=== PATIENT | male | born 1980 | race Caucasian/White ===

== ENCOUNTER 2016-08-15 07:32 | Emergency (ER) | payer SELFPAY ==
[~2016-08-15] VITALS: Ht 172.7 cm; Wt 63.5 kg
[2016-08-15 07:32] VITALS: BP 150/94
[~2016-08-15 07:32] MED LIST: NAPR500T3 PO; ORPH100T PO
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
[2016-08-15 08:59] LABS: BASO # 0.1 x10^3/uL (0.0-0.2); BASO % 1 % (0-3); EOS % 2 % (0-3); HEMATOCRIT 39.9 % (39.0-53.0); HEMOGLOBIN 13.7 g/dL (13.0-17.5); LYMPH # 1.4 x10^3/uL (1.0-4.8); LYMPH % 18 % (24-48); MEAN CORPUSCULAR HEMOGLOBIN 29 pg (25-35); MEAN CORPUSCULAR HGB CONC 34 g/dL (31-37); MEAN CORPUSCULAR VOLUME 85 fL (79-100); MONO % 8 % (0-9); NEUT % 71 % (31-73); PLATELET COUNT 262 x10^3/uL (140-400); RED BLOOD COUNT 4.68 x10^6/uL (4.30-5.70); RED CELL DISTRIBUTION WIDTH 16.1 % (11.5-14.5); WHITE BLOOD COUNT 7.8 x10^3/uL (4.0-11.0)
[2016-08-15 09:01] LABS: BILIRUBIN,URINE NEGATIVE (NEG); GLUCOSE,URINE NEGATIVE (NEG); NITRITE,URINE NEGATIVE (NEG); PH,URINE 7.5; PROTEIN,URINE NEGATIVE (NEG-TRACE); UROBILINOGEN,URINE 0.2 mg/dL (0.2 mg/dL)
[2016-08-15 09:04] LABS: BARBITURATES NEG (NEG); BENZODIAZEPINES NEG (NEG); CANNABINOIDS NEG (NEG); COCAINE POS (NEG); METHADONE NEG (NEG); OPIATES NEG (NEG); PHENCYCLIDINE NEG (NEG)
[2016-08-15 09:12] LABS: BACTERIA,URINE FEW /HPF (0-FEW); RBC,URINE OCC /HPF (0-2); SQUAMOUS EPITHELIAL CELL,UR FEW /LPF
[2016-08-15 09:23] LABS: CALCIUM 9.2 mg/dL (8.5-10.1); CREATININE 0.9 mg/dL (0.7-1.3); GFR 95.5; POTASSIUM 4.1 mmol/L (3.5-5.1)
[2016-08-15 09:30] LABS: ALBUMIN 3.6 g/dL (3.4-5.0); TOTAL BILIRUBIN 0.5 mg/dL (0.2-1.0); TOTAL PROTEIN 7.1 g/dL (6.4-8.2)
[2016-08-15 09:31] LABS: ETHANOL < 10 mg/dL (0-10)
== END 2016-08-15 09:34 | disposition short-term general hospital (02) ==
LOC: ER 07:32
DX: R45.851 Suicidal ideations (principal); F43.10 Post-traumatic stress disorder, unspecified; F31.9 Bipolar disorder, unspecified; F25.9 Schizoaffective disorder, unspecified; F12.10 Cannabis abuse, uncomplicated; F15.10 Other stimulant abuse, uncomplicated
CPT/HCPCS: 36415; 80053; 80305; 80320; 81001; 83690; 85027; 99285; G6038; G0480; G0481; 80196

== ENCOUNTER 2019-10-23 19:23 | Emergency (ER) | payer MEDICAID ==
[~2019-10-23] VITALS: Ht 172.7 cm; Wt 64.0 kg
[~2019-10-23 19:23] MED LIST changes: +NAPR-514 PO; -NAPR500T3 PO
[2019-10-23 19:25] VITALS: BP 153/86
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
[2019-10-23] MEDS ORDERED: CEPH-264 PO (20:18)
[2019-10-23] MEDS ORDERED: BACI3.5O8 OS (20:19)
== END 2019-10-23 20:30 | disposition home or self-care (01) ==
LOC: ER 19:23
DX: S00.561A Insect bite (nonvenomous) of lip, initial encounter (principal); S90.561A Insect bite (nonvenomous), right ankle, initial encounter; S70.361A Insect bite (nonvenomous), right thigh, initial encounter; F31.9 Bipolar disorder, unspecified; F17.200 Nicotine dependence, unspecified, uncomplicated; F12.90 Cannabis use, unspecified, uncomplicated; F19.90 Other psychoactive substance use, unspecified, uncomplicated; Z98.890 Other specified postprocedural states; W57.XXXA Bitten or stung by nonvenomous insect and other nonvenomous arthropods, initial encounter; Y93.89 Activity, other specified; Y92.89 Other specified places as the place of occurrence of the external cause; Y99.8 Other external cause status
CPT/HCPCS: 99283

== ENCOUNTER 2019-11-10 11:22 | Emergency (ER) | payer MEDICAID ==
[~2019-11-10] VITALS: Ht 172.7 cm; Wt 59.0 kg
[~2019-11-10 11:22] MED LIST changes: +BACI3.5O8 OS; +CEPH-264 PO
[2019-11-10 11:28] VITALS: BP 140/86
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
[2019-11-10 12:14] LABS: BASO # 0.1 x10^3/uL (0.0-0.2); BASO % 1 % (0-3); EOS # 0.1 x10^3/uL (0.0-0.7); EOS % 2 % (0-3); HEMATOCRIT 32.8 % (39.0-53.0); HEMOGLOBIN 11.2 g/dL (13.0-17.5); LYMPH % 26 % (24-48); MEAN CORPUSCULAR HEMOGLOBIN 31 pg (25-35); MEAN CORPUSCULAR HGB CONC 34 g/dL (31-37); MEAN CORPUSCULAR VOLUME 90 fL (79-100); MONO # 0.5 x10^3/uL (0.0-1.1); MONO % 7 % (0-9); NEUT # 4.9 x10^3/uL (1.8-7.7); NEUT % 64 % (31-73); PLATELET COUNT 290 x10^3/uL (140-400); RED BLOOD COUNT 3.65 x10^6/uL (4.30-5.70); RED CELL DISTRIBUTION WIDTH 13.9 % (11.5-14.5); WHITE BLOOD COUNT 7.6 x10^3/uL (4.0-11.0)
[2019-11-10 12:31] LABS: ALBUMIN 3.4 g/dL (3.4-5.0); DIRECT BILIRUBIN 0.1 mg/dL (0.0-0.2); TOTAL BILIRUBIN 0.2 mg/dL (0.2-1.0); TOTAL PROTEIN 6.1 g/dL (6.4-8.2)
--- NOTE | 2019-11-14 13:35 | EKG ---
[facility] [address] [place] [address] Test Date: 2019-11-10 Test Time: 12:14:27 Pat Name: ELLA MATHIAS Department: Room: Gender: M Facility Mechanic: : 1980 Requested By: DANIEL SMITH Order Number: [id number] Reading MD: Measurements Intervals [place] Rate: 64 P: 71 MS: 136 QRS: 75 QRSD: 88 T: 64 QT: 364 QTc: 379 Interpretive Statements SINUS RHYTHM NO SPECIFIC ECG ABNORMALITIES RI6.01 No previous ECG available for comparison
== END 2019-11-10 13:05 | disposition home or self-care (01) ==
LOC: ER 11:22
DX: S40.812A Abrasion of left upper arm, initial encounter (principal); S40.811A Abrasion of right upper arm, initial encounter; S80.812A Abrasion, left lower leg, initial encounter; S80.811A Abrasion, right lower leg, initial encounter; L98.498 Non-pressure chronic ulcer of skin of other sites with other specified severity; R53.83 Other fatigue; F25.9 Schizoaffective disorder, unspecified; F43.10 Post-traumatic stress disorder, unspecified; F31.9 Bipolar disorder, unspecified; F17.200 Nicotine dependence, unspecified, uncomplicated; W57.XXXA Bitten or stung by nonvenomous insect and other nonvenomous arthropods, initial encounter; Y93.89 Activity, other specified; Y92.89 Other specified places as the place of occurrence of the external cause; Y99.8 Other external cause status
CPT/HCPCS: 36415; 80076; 84484; 85025; 93005; 99284

== ENCOUNTER 2020-01-27 21:15 | Emergency (ER) | payer MEDICAID | END 2020-01-27 21:30 | disposition left against medical advice (07) | LOC: ER 21:15 | DX: F12.10 Cannabis abuse, uncomplicated (principal); Z53.21 Procedure and treatment not carried out due to patient leaving prior to being seen by health care provider ==

== ENCOUNTER 2020-03-24 17:27 | Emergency (ER) | payer MEDICAID ==
[~2020-03-24] VITALS: Ht 172.7 cm; Wt 60.0 kg
[2020-03-24 17:40] VITALS: BP 127/79
--- NOTE | 2020-03-24 18:05 | RAD ---
EXAM: XR HAND_LEFT 3 VIEWS 03/24/2020 5:53 PM CLINICAL INDICATION: Pain COMPARISON: None TECHNIQUE: 3 views of the left hand FINDINGS: There is an acute, comminuted, oblique fracture of the second metacarpal shaft with approx imately 1 cortex width radial and volar displacement of the distal fragment. No other fracture or mal alignment. Joint spaces are normal. Soft tissues normal. IMPRESSION: Mildly displaced second metacarpal shaft fracture. Electronically signed by: Camille Robles MD (03/24/2020 6:02 PM) [id number]
[2020-03-24] MEDS ORDERED: HYDROcodone/APAP 5/325MG 1 TAB TABLET ONE (18:15)
[2020-03-24] MEDS ORDERED: HYDROcodone/APAP 5/325MG 1 TAB TABLET PO ONE (18:15)
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
== END 2020-03-24 18:20 | disposition left against medical advice (07) ==
LOC: ER 17:27
DX: S62.321A Displaced fracture of shaft of second metacarpal bone, left hand, initial encounter for closed fracture (principal); R60.0 Localized edema; R20.2 Paresthesia of skin; F31.9 Bipolar disorder, unspecified; F17.200 Nicotine dependence, unspecified, uncomplicated; F12.90 Cannabis use, unspecified, uncomplicated; F43.12 Post-traumatic stress disorder, chronic; Z98.890 Other specified postprocedural states; W18.09XA Striking against other object with subsequent fall, initial encounter; Y93.89 Activity, other specified; Y92.89 Other specified places as the place of occurrence of the external cause; Y99.8 Other external cause status
CPT/HCPCS: 29125; 73130; 99283

== ENCOUNTER 2020-04-16 20:12 | Emergency (ER) | payer MEDICAID ==
[~2020-04-16] VITALS: Ht 172.7 cm; Wt 65.9 kg
[2020-04-16 21:10] LABS: BASO # 0.1 x10^3/uL (0.0-0.2); BASO % 1 % (0-3); EOS # 0.3 x10^3/uL (0.0-0.7); EOS % 3 % (0-3); HEMATOCRIT 34.1 % (39.0-53.0); HEMOGLOBIN 11.7 g/dL (13.0-17.5); LYMPH # 2.7 x10^3/uL (1.0-4.8); LYMPH % 34 % (24-48); MEAN CORPUSCULAR HEMOGLOBIN 30 pg (25-35); MEAN CORPUSCULAR HGB CONC 34 g/dL (31-37); MEAN CORPUSCULAR VOLUME 87 fL (79-100); MONO # 0.7 x10^3/uL (0.0-1.1); MONO % 9 % (0-9); NEUT # 4.3 x10^3/uL (1.8-7.7); NEUT % 54 % (31-73); PLATELET COUNT 371 x10^3/uL (140-400); RED BLOOD COUNT 3.91 x10^6/uL (4.30-5.70); RED CELL DISTRIBUTION WIDTH 13.3 % (11.5-14.5)
--- NOTE | 2020-04-16 21:24 | PHYS DOC ---
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 Patient also states that 10 days ago he was at the [facility] and they placed a cast on his left ear because he had broken his hand earlier. Patient states that his cast got wet so he just took it off. Patient reports left hand pain from his broken hand and headache at this time. Patient denies any recent fever or chills, denies chest pain, denies shortness of breath, denies congestion, denies skin rashes, denies any other complaints or concerns. Patient states that he is homeless and he really just needs to get out of the cold right now. Review of Systems: Review of Systems: 14 body systems of review of systems have been reviewed. See HPI for pertinent positives and negative responses, otherwise all other systems are negative, nonpertinent or noncontributory. Heart Score: Risk Factors: Risk Factors: DM, Current or recent (<one month) smoker, HTN, HLP, family history of CAD, obesity. Risk Scores: Score 0 - 3: 2.5% MACE over next 6 weeks - Discharge Home Score 4 - 6: 20.3% MACE over next 6 weeks - Admit for Clinical Observation Score 7 - 10: 72.7% MACE over next 6 weeks - Early Invasive Strategies Current Medications: Patient denies taking lexw-vzq-ozopqep or prescription medications at home. Allergies: Allergies: Allergies Coded Allergies Type Severity Reaction Last Updated Verified No Known Drug Allergies 09/17/13 No Physical Exam: PE: Constitutional: Well developed, well nourished, no acute distress, non-toxic appearance. HENT: Normocephalic, atraumatic, bilateral external ears normal, oropharynx moist, no oral exudates, nose normal. Eyes: PERRLA, EOMI, conjunctiva normal, no discharge. Neck: Normal range of motion, no tenderness, supple, no stridor. Cardiovascular:Heart rate regular rhythm, no murmur Lungs & Thorax: Bilateral breath sounds clear to auscultation Abdomen: Bowel sounds normal, soft, no tenderness, no masses, no pulsatile masses. Skin: Warm, dry, no erythema, no rash. Back: No tenderness, no CVA tenderness. Extremities: No tenderness, no cyanosis, no clubbing, ROM intact, no edema. Left hand deformity fourth metacarpal area dorsal aspect hand. Distal cap refill less than 2 seconds. Limited passive range of motion. Patient has a known fracture of the left hand. Neurologic: Alert and oriented X 3, normal motor function, normal sensory function, no focal deficits noted. Psychologic: Affect normal, judgement normal, mood normal. Current Patient Data: Labs: Laboratory Tests Test 04/16/20 20:20 White Blood Count 8.0 x10^3/uL Red Blood Count 3.91 x10^6/uL Hemoglobin 11.7 g/dL Hematocrit 34.1 % Mean Corpuscular Volume 87 fL Mean Corpuscular Hemoglobin 30 pg Mean Corpuscular Hemoglobin Concent 34 g/dL Red Cell Distribution Width 13.3 % Platelet Count 371 x10^3/uL Neutrophils (%) (Auto) 54 % Lymphocytes (%) (Auto) 34 % Monocytes (%) (Auto) 9 % Eosinophils (%) (Auto) 3 % Basophils (%) (Auto) 1 % Neutrophils # (Auto) 4.3 x10^3/uL Lymphocytes # (Auto) 2.7 x10^3/uL Monocytes # (Auto) 0.7 x10^3/uL Eosinophils # (Auto) 0.3 x10^3/uL Basophils # (Auto) 0.1 x10^3/uL Sodium Level 135 mmol/L Potassium Level 4.2 mmol/L Chloride Level 100 mmol/L Carbon Dioxide Level 26 mmol/L Anion Gap 9 Blood Urea Nitrogen 21 mg/dL Creatinine 0.8 mg/dL Estimated GFR (Cockcroft-Gault) 107.1 BUN/Creatinine Ratio 26 Glucose Level 101 mg/dL Calcium Level 8.7 mg/dL Total Bilirubin 0.2 mg/dL Aspartate Amino Transf (AST/SGOT) 25 U/L Alanine Aminotransferase (ALT/SGPT) 23 U/L Alkaline Phosphatase 88 U/L Total Protein 6.9 g/dL Albumin 3.5 g/dL Albumin/Globulin Ratio 1.0 Lipase 92 U/L Current Medications Medications (Trade) Dose Ordered Sig/Arlene Route PRN Reason Start Time Stop Time Status Last Admin Dose Admin Acetaminophen (Tylenol) 1,000 mg 1X ONCE PO 04/16/20 22:00 04/16/20 22:01 DC 04/16/20 21:59 Vital Signs: Vital Signs Date Time Temp Pulse Resp B/P (MAP) Pulse Ox O2 Delivery O2 Flow Rate FiO2 04/16/20 20:12 97.7 88 17 113/68 (83) 99 Room Air 97.7 EKG: EKG: [] Radiology/Procedures: Radiology/Procedures: []STATUS: REG ERORD. PHYSICIAN: PETR HUBER APRN REASON: SEVERE HEADACHE PROCEDURE: CT HEAD WO CONTRAST CT HEAD/BRAIN WO Date: 04/16/2020 9:33 PM Clinical Indication: Reason: SEVERE HEADACHE / Spl. Instructions: / History: Comparison: None. Technique: 5 mm axial tomographic images were obtained of the head without contrast. These were viewed on brain and bone windows. One or more of the following dose reduction techniques were utilized: Automated exposure control (AEC), Adjustment of mA and/or kV according to patient size, Use of iterative reconstruction technique such as ASiR, CT scan done according to ALARA and image gently/image wisely Findings: The brain parenchyma is normal in attenuation. No intra- or extra-axial mass or fluid collection. No acute hemorrhage. The ventricles are normal in size, shape, and morphology. The borrero-white matter junction is normal. The subarachnoid cisterns are patent. The visualized paranasal sinuses are normal. The visualized portions of the orbits and globes are normal. The mastoid air cells are clear. The ethnoarchaeology professor topogram shows no lytic lesion or fracture. Impression: No acute intracranial process. Electronically signed by: Harley Castro MD (04/16/2020 9:48 PM) [facility] DICTATED and SIGNED BY: HARLEY CASTRO MD DATE: 04/16/20 [id number] 0 : 1980 LOCATION: ER AGE: 40 SEX: M EXAM STATUS: REG ER ORD. PHYSICIAN: PETR HUBER APRN REASON: DEFORMITY AFTER EARLY SELF CAST REMOVAL PROCEDURE: HAND LEFT 3V 3 view left hand HISTORY: Deformity after early soft cast removal AP lateral oblique views There is a mildly comminuted fracture of the distal second metacarpal with mild lateral displacement. There is some healing callus formation. The remaining visualized osseous structures appear normal. IMPRESSION: Fracture of the second metacarpal with mild displacement. Electronically signed by: Terence Thomas III, MD (04/16/2020 10:53 PM) [facility] DICTATED and SIGNED BY: TERENCE HTOMAS III, MD DATE: 04/16/20 [id number] 0 Course & Med Decision Making: Course & Med Decision Making Pertinent Labs and Imaging studies reviewed. (See chart for details) 40-year-old patient presents emergency department with headache after smoking K2. Patient also took his cast off his left hand with a known fracture of the left hand. Patient's physical exam was unremarkable except for left hand de formity. An x-ray was ordered of the left hand and CAT scan of the head related to patient's complaint of severe headache after smoking K2. Labs pending at this time. CT read by house radiologist negative for acute process, serum labs were unremarkable and did not show infectious process. X-ray of the left hand showed fracture fourth metacarpal, was splinted by debug technician. Volar splint extending past DIP joints examined in satisfactory anatomical position distal cap refill less than 2 seconds, no signs of compartment syndrome, remains neurovascular intact after splint placement. Discussed findings with patient, discussed need for him to follow-up with [facility] and have cast replaced. Discussed cessation of smoking K2 in the future. Patient gave verbal understanding of discharge home instructions, follow-up with Ortho clinic, return to ER precautions or concerns, patient d ischarged home without incident. Impression: #1 substance abusesmoking K2 #2 fracture left hand #3 headache Dragon Disclaimer: Levon Disclaimer: This electronic medical record was generated, in whole or in part, using a voice recognition dictation system. Departure Departure Impression: Primary Impression: Substance abuse Additional Impressions: Fracture of left hand Qualified Codes: S62.92XA - Unspecified fracture of left wrist and hand, initial encounter for closed fracture Headache Qualified Codes: R51.9 - Headache, unspecified Disposition: 01 DC HOME SELF CARE/HOMELESS Condition: GOOD Referrals: NO PCP (PCP) Additional Instructions: Follow-up with Ortho clinic to have your cast replaced. Return to emergency department for worsening symptoms or other concerns. Please stop smoking K2 are abusing other illicit substances. EMERGENCY DEPARTMENT GENERAL DISCHARGE INSTRUCTIONS Thank you for coming to [facility] Emergency Department (ED) today and trusting us with you care. We trust that you had a positive experience in our Emergency Department. If you wish to speak to the department management, you may call the Director at [phone]. YOUR FOLLOW UP INSTRUCTIONS ARE FOLLOWS: 1. Do you have a private Doctor? If you do not have a private doctor, please ask for a resource list of physicians or clinics that may be able to assist you with follow up care. 2. The Emergency Physicain has interpreted your x-rays. The X-Ray specialist will also review them. If there is a change in the findings, you will be notified in 48 hours when at all possible. 3. A lab test or culture has been done, your results will be reviewed and you will be notified if you need a change in treatment. ADDITIONAL INSTRUCTIONS AND INFORMATION: 1. Your care today has been supervised by a physician who is specially trained in emergency care. Many problems require more than one evaluation for a complete diagnosis and treatment. We recommend that you schedule your follow up appointment as recommended to ensure complete treatment of you illness or injury. If you are unable to obtain follow up care and continue to have a problem, or if your condition worsens, we recommend that you return to the ED. 2. We are not able to safely determine your condition over the phone nor are we able to give sound medical advice over the phone. For these safety reasons, if you call for medical advice we will ask you to come to the ED for further evaluation. 3. If you have any questions regarding these discharge instructions please call the ED at [phone]. SAFETY INFORMATION: In the interest of safety, wellness, and injury prevention; we encourage you to wear your sealbelt, if you smoke; quite smoking, and we encourage family to use a protec tive helmet for bicycling and other sporting events that present an increased risk for head injury. IF YOUR SYMPTOMS WORSEN OR NEW SYMPTOMS DEVELOP, OR YOU HAVE CONCERNS ABOUT YOUR CONDITION; OR IF YOUR CONDITION WORSENS WHILE YOU ARE WAITING FOR YOUR FOLLOW UP APPOINTMENT; EITHER CONTACT YOUR PRIMARY CARE DOCTOR, THE PHYSICIAN WHOSE NAME AND NUMBER YOU WERE GIVEN, OR RETURN TO THE ED IMMEDIATELY. PETR HUBER APRN Apr 16, 2020 21:24
[2020-04-16 21:33] LABS: CALCIUM 8.7 mg/dL (8.5-10.1); CREATININE 0.8 mg/dL (0.7-1.3); GFR 107.1; POTASSIUM 4.2 mmol/L (3.5-5.1)
[2020-04-16 21:40] LABS: ALBUMIN 3.5 g/dL (3.4-5.0); TOTAL BILIRUBIN 0.2 mg/dL (0.2-1.0); TOTAL PROTEIN 6.9 g/dL (6.4-8.2)
--- NOTE | 2020-04-16 21:50 | RAD ---
CT HEAD/BRAIN WO Date: 04/16/2020 9:33 PM Clinical Indication: Reason: SEVERE HEADACHE / Spl. Instructions: / History: Comparison: None. Technique: 5 mm axial tomographic images were obtained of the head without contrast. These were view ed on brain and bone windows. One or more of the following dose reduction techniques were utilized: A utomated exposure control (AEC), Adjustment of mA and/or kV according to patient size, Use of iterati ve reconstruction technique such as ASiR, CT scan done according to ALARA and image gently/image dahl ly Findings: The brain parenchyma is normal in attenuation. No intra- or extra-axial mass or fluid collection. No acute hemorrhage. The ventricles are normal in size, shape, and morphology. The borrero-white matter edu ction is normal. The subarachnoid cisterns are patent. The visualized paranasal sinuses are normal. The visualized portions of the orbits and globes are no rmal. The mastoid air cells are clear. The bioinformatics engineer topogram shows no lytic lesion or fracture. Impression: No acute intracranial process. Electronically signed by: Naldo Castro MD (04/16/2020 9:48 PM) [facility]ITALCitlali
[2020-04-16] MEDS ORDERED: ACETAMINOPHEN 500 MG TABLET PO ONE (22:00)
--- NOTE | 2020-04-16 22:56 | RAD ---
3 view left hand HISTORY: Deformity after early soft cast removal AP lateral oblique views There is a mildly comminuted fracture of the distal second metacarpal with mild lateral displacement. There is some healing callus formation. The remaining visualized osseous structures appear normal. IMPRESSION: Fracture of the second metacarpal with mild displacement. Electronically signed by: Guicho Schulte III, MD (04/16/2020 10:53 PM) JOHN
[2020-04-17 01:00] VITALS: BP 104/60
== END 2020-04-17 01:08 | disposition home or self-care (01) ==
LOC: ER 20:12
DX: S62.102A Fracture of unspecified carpal bone, left wrist, initial encounter for closed fracture (principal); R51.9 Headache, unspecified; F41.9 Anxiety disorder, unspecified; F31.9 Bipolar disorder, unspecified; F20.9 Schizophrenia, unspecified; F17.200 Nicotine dependence, unspecified, uncomplicated; F19.90 Other psychoactive substance use, unspecified, uncomplicated; F12.90 Cannabis use, unspecified, uncomplicated; Z98.890 Other specified postprocedural states; X58.XXXA Exposure to other specified factors, initial encounter; Y93.89 Activity, other specified; Y92.89 Other specified places as the place of occurrence of the external cause; Y99.8 Other external cause status
CPT/HCPCS: 29125; 36415; 70450; 73130; 80053; 83690; 85025; 99285

== ENCOUNTER 2020-11-19 18:08 | Emergency (ER) | payer SELFPAY ==
[2020-09-21 11:00] VITALS: BP 105/60
== END 2020-11-19 20:00 | disposition left against medical advice (07) ==
LOC: ER 18:08
DX: T67.5XXA Heat exhaustion, unspecified, initial encounter (principal); Z53.21 Procedure and treatment not carried out due to patient leaving prior to being seen by health care provider; X58.XXXA Exposure to other specified factors, initial encounter; Y93.89 Activity, other specified; Y92.89 Other specified places as the place of occurrence of the external cause; Y99.8 Other external cause status

== ENCOUNTER 2021-03-17 21:25 | Emergency (ER) | payer SELFPAY ==
[2020-09-21 11:00] VITALS: BP 105/60
== END 2021-03-17 22:06 | disposition left against medical advice (07) ==
LOC: ER 21:25
DX: M25.559 Pain in unspecified hip (principal); Z53.21 Procedure and treatment not carried out due to patient leaving prior to being seen by health care provider

== ENCOUNTER 2021-06-21 04:00 | Emergency (ER) | payer SELFPAY ==
[2020-09-21 11:00] VITALS: BP 105/60
== END 2021-06-21 04:50 | disposition left against medical advice (07) ==
LOC: ER 04:00
DX: J00 Acute nasopharyngitis [common cold] (principal); Z53.21 Procedure and treatment not carried out due to patient leaving prior to being seen by health care provider

== ENCOUNTER 2021-07-30 22:23 | Emergency (ER) | payer SELFPAY ==
[~2021-07-30] VITALS: Ht 172.7 cm; Wt 68.2 kg
--- NOTE | 2021-07-30 23:30 | PHYS DOC ---
Past Medical History Past Medical History: Anxiety, Bipolar, Schizophrenia, Unknown, Other Additional Past Medical Histor: PTSD,SCHIZO-AFFECTIVE,FACIAL TRAUMA,DRUG USE Past Surgical History: Other Additional Past Surgical Histo: FACIAL RECONSTRUCTION Smoking Status: Current Every Day Smoker Alcohol Use: Occasionally Drug Use: Marijuana, Methamphetamine, Other General Adult EDM: Chief Complaint: MEDICAL CLEARANCE HPI: HPI: Patient is a 41 year old male with history of schizophrenia, bipolar, anxiety, methamphetamine use, presenting to the ED today for medical clearance to go to retirement. Patient has no acute medical complaints. He states he has history of chronic left hip pain, he states his left hip is deteriorating. He states he is supposed to have hip replacement. He states he would like us to do MRI right now and replace his hip before he goes to retirement. Denies any trauma. He is verbally aggressive. He is currently handcuffed. Review of Systems: Review of Systems: Constitutional: Denies fever or chills. [] Musculoskeletal: Reports chronic left hip pain Integument: Denies rash. [] Neurologic: Denies headache, focal weakness or sensory changes. [] Psychiatric: Visit for medical clearance to go to retirement Heart Score: C/O Chest Pain: N/A Risk Factors: Risk Factors: DM, Current or recent (<one month) smoker, HTN, HLP, family histo ry of CAD, obesity. Risk Scores: Score 0 - 3: 2.5% MACE over next 6 weeks - Discharge Home Score 4 - 6: 20.3% MACE over next 6 weeks - Admit for Clinical Observation Score 7 - 10: 72.7% MACE over next 6 weeks - Early Invasive Strategies Allergies: Allergies: Allergies Coded Allergies Type Severity Reaction Last Updated Verified No Known Drug Allergies 09/17/13 No Physical Exam: PE: Constitutional: Well developed, well nourished, no acute distress, non-toxic appearance. [] Skin: Warm, dry, no erythema, no rash. [] Back: No tenderness, no CVA tenderness. [] Extremities: No tenderness, no cyanosis, no clubbing, ROM intact, no edema. [] Neurologic: Alert and oriented X 3, normal motor function, normal sensory function, no focal deficits noted. [] Psychologic: Verbally aggressive EKG: EKG: [] Radiology/Procedures: Radiology/Procedures: [] Course & Med Decision Making: Course & Med Decision Making Pertinent Labs and Imaging studies reviewed. (See chart for details) This a 41-year-old male patient presenting to the ED today to be medically willis red to go to retirement. Patient has no acute medical complaint. He is complaining about chronic left hip pain and stating we need to do an MRI, replace his hip then he will be medically cleared to go to retirement. Informed patient we do not do nonemergent MRI in the emergency room. Offered him x-ray, he states x-rays do not show anything he has had many of those. Informed him he has been medically cleared he can follow-up with orthopedic doctor as an outpatient or through the retirement system. [employer] Disclaimer: [employer] Disclaimer: This electronic medical record was generated, in whole or in part, using a voice recognition dictation system. Departure Departure Impression: Primary Impression: Chronic left hip pain Disposition: HOME / SELF CARE / HOMELESS Condition: STABLE Referrals: NO PCP (PCP) SHAKILA MALCOLM II, MD Please follow-up with the provided orthopedic doctor or the orthopedic doctor provided in retirement Patient Instructions: Hip Pain Additional Instructions: You have been medically cleared to go to retirement. Please follow-up with resources they have in retirement or the provided orthopedic doctor GRACIE CABRALES APRN Jul 30, 2021 23:30
[2021-07-31 00:30] VITALS: BP 117/69
== END 2021-07-31 00:42 | disposition home or self-care (01) ==
LOC: ER 22:23
DX: G89.29 Other chronic pain (principal); M25.552 Pain in left hip; F20.9 Schizophrenia, unspecified; F31.9 Bipolar disorder, unspecified; F41.9 Anxiety disorder, unspecified; F17.200 Nicotine dependence, unspecified, uncomplicated
CPT/HCPCS: 99283